=== PATIENT | female | born 1960 | race American Indian/Alaskan Native ===

== ENCOUNTER 2016-08-04 17:04 | Emergency (ER) | payer MEDICARE ==
[2016-08-04 18:48] LABS: Urine Drugs of Abuse Note Disclamer
[2016-08-04 19:05] LABS: Bacteria,Urine 1+ /HPF (Negative); Bilirubin,Urine NEG (Negative); Blood,Urine SM (Negative); Ketones,Urine TR mg/dL (Negative); Leukocyte Esterase,Urine TR (Negative); Nitrite,Urine NEG (Negative); Protein,Urine <15 mg/dL mg/dL (Negative); Urobilinogen,Urine < 2.0 mg/dL (<2.0); WBC,Urine < 1.0 /HPF (0.0-6.0)
[2016-08-04 19:12] LABS: Hematocrit 42.2 % (30.3-42.9); Hemoglobin 13.8 gm/dl (10.1-14.3); Mean Corpuscular HGB Conc 33 % (30-34); Mean Corpuscular Hemoglobin 29 pg (28-32); Mean Corpuscular Volume 89 fl (79-97); Platelet Count 198 K/mm3 (140-440); Red Blood Count 4.75 M/mm3 (3.65-5.03); Red Cell Distribution Width 14.1 % (13.2-15.2); White Blood Count 8.6 K/mm3 (4.5-11.0)
[2016-08-04 19:27] LABS: INR 0.99 (0.87-1.13)
--- NOTE | 2016-08-04 19:57 | Emergency Department Report ---
ED General Adult HPI - General Chief complaint: Arrhythmia/Palpitations Stated complaint: CARDIAC Time Seen by Provider: 08/04/16 18:51 Source: patient, EMS, RN notes reviewed Mode of arrival: Stretcher Limitations: Physical Limitation - History of Present Illness Initial comments: This is a 55-year-old female. She is previously unknown to me. The patient reports that her primary care doctor is at [place]. She reports her strap buckler was a grating. She reports a past medical history of hypertension, cardiac disease with 2 stents. The patient indicates noncompliance with her medications for the past 6 months. Patient recently had an fall, and was recently diagnosed with right lower extremity fractured patella. 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 911 was contacted, the patient was found to be in SVT, and this was terminated with 6 mg of adenosine. The patient reports chest pain and diaphoresis during her episode of SVT. She is not having chest pain at this time. She is not having shortness of breath at this time. She is not having abdominal pain at this time. -: Sudden Location: chest Severity scale (0 -10): 0 Consistency: now resolved Improves with: medication Associated Symptoms: chest pain, diaphoresis - Related Data Previous Rx's Medication Instructions Recorded Last Taken Type Metoprolol [Lopressor TAB] 25 mg PO BID #28 tablet 08/04/16 Unknown Rx Allergies Allergy/AdvReac Type Severity Reaction Status Date / Time No Known Allergies Allergy Unverified 08/04/16 18:00 ED Review of Systems ROS: Stated complaint: CARDIAC Other details as noted in HPI Constitutional: diaphoresis. denies: fever, malaise Eyes: denies: vision change ENT: denies: epistaxis Respiratory: shortness of breath Cardiovascular: chest pain, palpitations Gastrointestinal: denies: abdominal pain Genitourinary: as per HPI. denies: dysuria Musculoskeletal: arthralgia Skin: denies: lesions Neurological: denies: weakness Psychiatric: anxiety ED Past Medical Hx - Past Medical History Hx Hypertension: Yes - Surgical History Past Surgical History?: Yes Hx Coronary Stent: Yes - Social History Smoking Status: Never Smoker Substance Use Type: None - Medications Home Medications: Home Medications Medication Instructions Recorded Confirmed Last Taken Type Metoprolol [Lopressor TAB] 25 mg PO BID #28 tablet 08/04/16 Unknown Rx ED Physical Exam - General Limitations: Physical Limitation General appearance: alert, in no apparent distress - Head Head exam: Present: atraumatic, normocephalic - Eye Eye exam: Present: normal appearance, EOMI. Absent: nystagmus - ENT ENT exam: Present: normal exam, normal orophraynx, mucous membranes moist, normal external ear exam - Neck Neck exam: Present: normal inspection, full ROM. Absent: tenderness, meningismus - Respiratory Respiratory exam: Present: normal lung sounds bilaterally. Absent: respiratory distress, wheezes, rales, rhonchi, stridor, chest wall tenderness, accessory muscle use, decreased breath sounds, prolonged expiratory - Cardiovascular Cardiovascular Exam: Present: regular rate, normal rhythm, normal heart sounds. Absent: bradycardia, tachycardia, irregular rhythm, systolic murmur, diastolic murmur, rubs, gallop - GI/Abdominal GI/Abdominal exam: Present: soft, normal bowel sounds. Absent: distended, tenderness, guarding, rebound, rigid, pulsatile mass - Extremities Exam Extremities exam: Present: normal inspection, normal capillary refill, other ( the bilateral upper extremities are unremarkable, and the left lower extremity is unremarkable. The right lower extremity is in a knee immobilizer.). Absent : calf tenderness - Back Exam Back exam: Present: normal inspection, full ROM. Absent: tenderness, CVA tenderness (R), CVA tenderness (L), muscle spasm, paraspinal tenderness, vertebral tenderness - Neurological Exam Neurological exam: Present: alert, oriented X3, other (Extraocular movements intact. Tongue midline. No facial droop. Facial sensation intact to light touch in the V1, V2, V3 distribution bilaterally. 5 and 5 strength in 4 extremities.. Sensation is intact to light touch in 4 extremities.). Absent: motor sensory deficit - Psychiatric Psychiatric exam: Present: normal affect, normal mood - Skin Skin exam: Present: warm, dry, intact, normal color. Absent: rash ED Course Vital Signs 08/04/16 08/04/16 08/04/16 18:00 18:04 18:10 Temperature 96.9 F L Pulse Rate 85 78 83 Respiratory 18 16 16 Rate Blood Pressure 200/114 Blood Pressure 200/114 [Left] O2 Sat by Pulse 96 96 Oximetry 08/04/16 08/04/16 08/04/16 18:20 18:30 18:43 Temperature Pulse Rate 76 89 86 Respiratory 17 18 Rate Blood Pressure 200/114 200/114 200/114 Blood Pressure [Left] O2 Sat by Pulse 97 97 Oximetry 08/04/16 08/04/16 08/04/16 18:49 19:00 20:00 Temperature Pulse Rate 79 82 Respiratory 25 H 20 Rate Blood Pressure 200/114 Blood Pressure 198/104 [Left] O2 Sat by Pulse 99 97 98 Oximetry 08/04/16 20:15 Temperature Pulse Rate 82 Respiratory Rate Blood Pressure 198/104 Blood Pressure [Left] O2 Sat by Pulse Oximetry - Reevaluation(s) Reevaluation #1: 08/04/16 19:55 differential diagnosis: Arrhythmia, now resolved, SVT, now resolved, acute coronary syndrome, hypertensive urgency Assessment and plan: 55-year-old female who endorses chest pain and diaphoresis , she indicates that she has 2 stents, and that she is noncompliant with her medications, but resolved SVT. Most likely her chest pain and diaphoresis was secondary to her SVT. However, given her complaint of chest pain, with diaphoresis, troponin is found to be elevated. I recommended admission to the hospital for further evaluation and management, but the patient is refusing. The patient is going to sign out AGAINST MEDICAL ADVICE. The patient is alert and oriented 3. She exhibits decision-making capacity, and she is free from distracting injury. The risks of leaving, including , disability, paralysis, loss of quality of life were discussed with the patient and numerous members of her family, all of whom verbalize understanding. The AMA conversation was witnessed by nurse Margaret Oropeza. ED Medical Decision Making - Lab Data Result diagrams: 08/04/16 19:00 08/04/16 19:00 Vital Signs 08/04/16 08/04/16 08/04/16 18:00 18:04 18:10 Temperature 96.9 F L Pulse Rate 85 78 83 Respiratory 18 16 16 Rate Blood Pressure 200/114 Blood Pressure 200/114 [Left] O2 Sat by Pulse 96 96 Oximetry 08/04/16 08/04/16 08/04/16 18:20 18:30 18:43 Temperature Pulse Rate 76 89 86 Respiratory 17 18 Rate Blood Pressure 200/114 200/114 200/114 Blood Pressure [Left] O2 Sat by Pulse 97 97 Oximetry 08/04/16 18:49 Temperature Pulse Rate Respiratory Rate Blood Pressure Blood Pressure [Left] O2 Sat by Pulse 99 Oximetry Temp Pulse Resp BP Pulse Ox 96.9 F L 86 18 200/114 99 08/04/16 18:00 08/04/16 18:43 08/04/16 18:30 08/04/16 18:43 08/04/16 18:49 Labs 08/04/16 08/04/16 08/04/16 18:40 18:40 19:00 WBC 8.6 RBC 4.75 Hgb 13.8 Hct 42.2 MCV 89 MCH 29 MCHC 33 RDW 14.1 Plt Count 198 PT INR Magnesium Troponin T TSH Urine Color Straw Urine Turbidity Clear Urine pH 6.0 Ur Specific [place] 1.004 Urine Protein <15 mg/dl Urine Glucose (UA) Neg Urine Ketones Tr Urine Blood Sm Urine Nitrite Neg Urine Bilirubin Neg Urine Urobilinogen < 2.0 Ur Leukocyte Esterase Tr Urine WBC (Auto) < 1.0 Urine RBC (Auto) 4.0 U Epithel Cells (Auto) 1.0 Urine Bacteria (Auto) 1+ Urine Opiates Screen Presumptive negative Urine Methadone Screen Presumptive negative Ur Barbiturates Screen Presumptive negative Ur Phencyclidine Scrn Presumptive negative Ur Amphetamines Screen Presumptive negative U Benzodiazepines Scrn Presumptive negative Urine Cocaine Screen Presumptive negative U Marijuana (THC) Screen Presumptive negative Drugs of Abuse Note Disclamer 08/04/16 08/04/16 08/04/16 19:00 19:00 19:00 WBC RBC Hgb Hct MCV MCH MCHC RDW Plt Count PT 13.0 INR 0.99 Magnesium 1.70 Troponin T TSH 0.863 Urine Color Urine Turbidity Urine pH Ur Specific [place] Urine Protein Urine Glucose (UA) Urine Ketones Urine Blood Urine Nitrite Urine Bilirubin Urine Urobilinogen Ur Leukocyte Esterase Urine WBC (Auto) Urine RBC (Auto) U Epithel Cells (Auto) Urine Bacteria (Auto) Urine Opiates Screen Urine Methadone Screen Ur Barbiturates Screen Ur Phencyclidine Scrn Ur Amphetamines Screen U Benzodiazepines Scrn Urine Cocaine Screen U Marijuana (THC) Screen Drugs of Abuse Note 08/04/16 19:00 WBC RBC Hgb Hct MCV MCH MCHC RDW Plt Count PT INR Magnesium Troponin T 0.071 H TSH Urine Color Urine Turbidity Urine pH Ur Specific [place] Urine Protein Urine Glucose (UA) Urine Ketones Urine Blood Urine Nitrite Urine Bilirubin Urine Urobilinogen Ur Leukocyte Esterase Urine WBC (Auto) Urine RBC (Auto) U Epithel Cells (Auto) Urine Bacteria (Auto) Urine Opiates Screen Urine Methadone Screen Ur Barbiturates Screen Ur Phencyclidine Scrn Ur Amphetamines Screen U Benzodiazepines Scrn Urine Cocaine Screen U Marijuana (THC) Screen Drugs of Abuse Note - EKG Data When compared to previous EKG there are: previous EKG unavailable 08/04/16 19:57 normal sinus, 73 bpm, left ventricular hypertrophy, normal intervals, normal axis, not consistent with STEMI. Critical care attestation.: If time is entered above; I have spent that time in minutes in the direct care of this critically ill patient, excluding procedure time. ED Disposition Clinical Impression: Elevated blood pressure reading Disposition: - LEFT AGAINST MED ADVICE Is pt being admited?: No Does the pt Need Aspirin: No Condition: Undetermined Instructions: Supraventricular Tachycardia (ED), Hypertension (ED) Additional Instructions: As we discussed, you have left the hospital/emergency room AGAINST MEDICAL ADVICE. By leaving, you risked , disability, paralysis, permanent loss of quality of life. The ER is open 24 hours a day, 7 days a week. It never closes. Please return to the emergency room right away if and when you change your mind. If you decide not to return to the emergency room, please follow-up with the listed physician referrals as soon as possible. Prescriptions: Metoprolol [Lopressor TAB] 25 mg PO BID #28 tablet Referrals: PRIMARY CARE, [Primary Care Provider] - 3-5 Days [facility] [Provider Group] - 3-5 Days [facility] [Provider Group] - 3-5 Days
[2016-08-04] MEDS ORDERED: CATAPRES PO ONE (20:00)
[2016-08-04 20:27] VITALS: BP 198/104
[2016-08-04 22:44] LABS: Anion Gap 23 mmol/L; BUN/Creatinine Ratio 16.25; Blood Urea Nitrogen 13 mg/dL (7-17); Calcium 9.6 mg/dL (8.4-10.2); Carbon Dioxide 25 mmol/L (22-30); Chloride 98.6 mmol/L (98-107); Glucose 94 mg/dL (65-100); Potassium 4.3 mmol/L (3.6-5.0); Sodium 142 mmol/L (137-145)
--- NOTE | 2016-08-05 08:26 | XRay Report ---
CHEST 2 VIEWS INDICATION: Resolved SVT. Evaluate for pneumonia. Patient injured knee 4 days ago. High blood pressure. COMPARISON: None similar at this institution. FINDINGS: PA and lateral chest radiographs demonstrate normal cardiomediastinal silhouette. Clear lungs. Intact bones. EKG leads. CONCLUSION: No acute disease in the chest. Thank you for the opportunity to participate in this patient's care.
== END 2016-08-04 20:20 | disposition left against medical advice (07) ==
LOC: ED 17:04
DX: I10 Essential (primary) hypertension (principal); Z95.818 Presence of other cardiac implants and grafts
CPT/HCPCS: 36415; 71020; 80048; 80061; 80307; 81001; 83735; 84443; 84484; 85027; 85610; 93005; 93010